=== PATIENT | male | born 1980 | race Caucasian/White ===

== ENCOUNTER 2016-12-06 06:44 | Day surgery (SDC) | payer BC ==
[~2016-12-06 06:44] MED LIST: ACETAMINOPHEN 500 MG TABLET PO PRN; MAG HYDROX/ALUMINUM HYD/SIMETH 30 ML UDC PO PRN; MAGNESIUM HYDROXIDE 30 ML UDC PO PRN; ONDANSETRON HCL/PF 2 MG/ML VIAL IV PRN; PROMETHAZINE HCL 25 MG in DEXTROSE 5 % IN WATER 50 ML IV PRN; RINGER'S SOLUTION,LACTATED 1,000 ML IV PRN; ZOLPIDEM TARTRATE 5 MG TABLET PO PRN; ceFAZolin SODIUM 1 GM VIAL IV PRN; diphenhydrAMINE HCL 50 MG/ML VIAL IV PRN
[2016-12-06] MEDS ORDERED: RINGER'S SOLUTION,LACTATED 1,000 ML IV ONE ×2 (07:19→09:30)
--- NOTE | 2016-12-06 11:09 | OR ---
Operative Report - Dictated Report Narrative: Date: 12/06/2016 Physician: Chava Griffin M.D. Cardiovascular Invasive Specialist: Jin Negron PA-C Preoperative diagnosis: Left Shoulder SLAP tear, posterior labral tear, acromioclavicular arthritis, subacromial impingement Postoperative diagnosis: Left Shoulder SLAP tear, posterior labral tear, acromioclavicular arthritis, subacromial impingement Procedure: Left shoulder arthroscopy with biceps tenodesis, posterior labral repair, open distal clavicle resection Anesthesia: General plus regional Complications: None Estimated blood loss: 50 mL Specimens: None Retained implants: [employer] 1.8 mm Q fix anchors 3, [employer] 5.5 mm Healicoil anchor 1 Drains: None Indications: Leighton Is a 36 year-old male who has been followed in my clinic with complaints of shoulder pain consistent with superior and posterior labral tear, subacromial impingement, and acromioclavicular arthritis. Physical exam and diagnostic imaging were consistent with his complaints and concern for the above. Conservative measures have failed including, but not limited to, passage of time, activity modification, medications, physical therapy/home exercise program, or injections. The risks, benefits, and alternatives were discussed in clinic. The risks being , bleeding, infection, blood clots, nerve, tendon, ligament, blood vessel injury, persistent pain, arthrosis, stiffness, need for prolonged therapy, need for additional procedures, and persistent symptoms. Consent was obtained in the clinic. Procedure: After marking the correct extremity in the preoperative holding area, a timeout was performed in the operating room. IV antibiotics consisting of 2 g of Ancef were administered prior to the procedure. A general followed by regional anesthetic was induced by the nurse violin restorer. This was in the supine position, then the patient was transitioned to a beachchair position with all bony prominences well-padded, head in neutral, the nonoperative arm well supported, and the legs padded with SCDs in place. The operative shoulder was then prepped and draped in a standard sterile fashion. Preoperatively the shoulder had full passive range of motion. After marking out the bony landmarks , saline was infused into the joint through a posterior lateral portal site. A hardy incision was made, and the blunt trocar and cannula was introduced into the shoulder joint. An anterior working portal was placed in the rotator cuff interval using a spinal needle for guidance. Upon initial evaluation, the biceps tendon showed a small amount of tenosynovitis but no tearing. The middle glenohumeral ligament was intact. Subscapularis tendon was intact. The glenoid showed mild grade 1 chondral changes. The humeral head articular surface showed no significant chondral changes. The anterior labrum was intact. The superior labrum demonstrated a type II tear extending into the posterior labrum. The pouch was of normal caliber with no loose bodies. The posterior labrum was or torn from the junction with the superior labrum all the way down to the 5 o'clock position. The supraspinatus tendon was intact with no tearing. The infraspinatus tendon was intact. Based on the arthroscopic findings, as well as exam and radiographic findings, it was elected to proceed with arthroscopic biceps tenodesis and posterior labral repair. We first turned our attention to the biceps tendon. A 5.5 mm suture anchor was placed at the superior aspect of the bicipital groove just superior to the upper border of the subscapularis insertion. One suture limb was passed twice around the tendon and then passed through it using an Accu Pass suture passing device. This was then tied down and the biceps tendon was tenotomized at the bicipital anchor. A 4.0 mm shaver was then used to debride the bicipital anchor as well as the free biceps tendon stump. Using the probe we confirmed that we had good anchoring of the biceps tendon. At this point a switching stick was placed in the posterior portal and a cannula was introduced. We turned our attention to preparing the posterior labrum using a series of labral elevators, a shaver, and a rasp. Once this was prepared with placed 1.8 mm Q fix anchors at approximately the 1:00, 2:30, and 4:00 positions to bring the labrum back up onto the glenoid. At this point we were happy with our posterior labral repair and felt there was no other intra-articular pathology to address. Attention was then turned to the subacromial space. Subacromial bursectomy was performed utilizing the prior portals. The coracoacromial ligament was intact. The bursal side of the rotator cuff demonstrated and no tears and no obvious wear. The acromial arch demonstrated normal morphology was no anterior hooking and no underside wear. The inferior aspect of the acromioclavicular joint capsule was inspected and he was noted to have significant inferior osteophyte off the distal clavicle causing impingement onto the supraspinatous muscle belly. Given these findings as well as his physical exam and MRI findings we elected to proceed with a open distal clavicle resection. All arthroscopic instruments and cannulas were removed from the joint. Attention was then turned to the distal clavicle. A longitudinal incision was made over the acromioclavicular joint. This was sharply dissected down to the chromic clavicular capsule. Cautery was utilized for hemostasis. A longitudinal capsulotomy was made and elevated off the anterior posterior aspects of the distal clavicle. There was notable hypertrophic bone and loss of joint space between the acromion and clavicle. Protecting the surrounding soft tissues, an oscillating saw was utilized in order to resect approximately 7 -10 mm of bone from the distal clavicle. The remaining clavicle was stable after removing this. A rasp was then used to smooth the underside of the cut portion of the distal clavicle as well as the underside of the acromion. The shoulder was placed through a range of motion and showed no remaining impingement between the acromion and the clavicle. Wounds were then thoroughly irrigated. The capsule was closed with interrupted 0 Vicryl to subcutaneous tissue with 3-0 Vicryl. Skin and portal incisions were closed with 4-0 nylon. Dressings consisting of Xeroform, 4 x 4, ABD, and tape were applied. All sponge, needle, blade, and instrument counts were correct prior to closing the wounds. The patient was awoken and transferred to the postanesthesia care unit in stable condition.
--- NOTE | 2016-12-06 11:09 | OR ---
Anesthesia Procedure Note - Anesthesia Procedure Note Date of Service: 12/06/16 Narrative: Vital Signs - Last Taken Temp 36.1 C L 12/06/16 10:50 Pulse 84 12/06/16 10:50 Resp 16 12/06/16 10:50 BP 154/89 12/06/16 07:15 Pulse Ox 97 12/06/16 10:50 O2 Oxygen Delivery Method Room Air 12/06/16 11:04 ANESTHESIA PROCEDURE NOTE Date of Procedure: 12/06/2016. Time of procedure: 744. Performed by: Christiano Shen CRNA Pipeline Gang Supervisor: None. Preprocedure diagnosis: Left shoulder pain, labral tear, shoulder tendinitis. Post procedure diagnosis: Same. Procedure: Left ultrasound guided interacalene nerve block for postoperative analgesia. Indications: The patient is a 36 -year-old male, requesting left ultrasound guided interscalene nerve block for postoperative analgesia related to left shoulder arthroscopy and labral repair. Findings: See below. Details of the procedure: The tissue over the intended target site was cleansed with ChloraPrep. 1 ml Lidocaine 1 % was infiltrated to the skin and subcutaneous tissue. Under sterile technique and ultrasound guidance a 22-gauge block needle was inserted to the left brachial plexus nerve bundle between the anterior scalene and the middle scalene muscles. 40 mL's of 0.5% bupivacaine plus epinephrine 1 200,000 was injected after negative aspiration for blood. Spread of local anesthetic around the brachial plexus was observed throughout the injection with ultrasound visualization. The needle was removed intact. No complications were noted. The images were retained in the hospital medical database . EBL: Minimal. Fluids: N/A. Specimen: N/A. Post procedure condition: The patient tolerated the procedure well. No complications were noted. Thank you for this consultation. Christiano Shen CRNA
[2016-12-06] MEDS ORDERED: oxyCODONE HCL/ACETAMINOPHEN 1 TAB TABLET PO PRN (12:23)
[2016-12-06] MEDS ORDERED: HYDROmorphone HCL 2 MG/ML VIAL IV PRN (12:24)
[2016-12-06 13:01] VITALS: BP 139/78
[2016-12-06] MEDS ORDERED: SENNOSIDES/DOCUSATE SODIUM 1 TAB TABLET PO SCH (21:00)
== END 2016-12-06 06:45 | disposition home or self-care (01) ==
LOC: AMB 06:44
PROVIDERS: ATTEND Orthopaedic Surgery
PROC: 0MM24ZZ Reattachment of Left Shoulder Bursa and Ligament, Percutaneous Endoscopic Approach (ICD-10-PCS; 2016-12-06)
PROC: 0PBB0ZZ Excision of Left Clavicle, Open Approach (ICD-10-PCS; 2016-12-06)
PROC: 3E0T3BZ Introduction of Anesthetic Agent into Peripheral Nerves and Plexi, Percutaneous Approach (ICD-10-PCS; 2016-12-06)
PROC: 0LS24ZZ Reposition Left Shoulder Tendon, Percutaneous Endoscopic Approach (ICD-10-PCS; principal; 2016-12-06 08:00)
DX: S43.432D Superior glenoid labrum lesion of left shoulder, subsequent encounter (principal); S43.492D Other sprain of left shoulder joint, subsequent encounter; M75.22 Bicipital tendinitis, left shoulder; M13.812 Other specified arthritis, left shoulder; M75.42 Impingement syndrome of left shoulder; Z68.27 Body mass index [BMI] 27.0-27.9, adult

== ENCOUNTER 2019-01-26 08:55 | Inpatient (IN) ==
[2019-01-26 09:58] LABS: Urine Bilirubin Negative (NEGATIVE); Urine Blood Negative /ul (NEGATIVE); Urine Ketone 50 mg/dL (NEGATIVE); Urine Nitrite Negative (NEGATIVE); Urine Protein 15 mg/dL (NEGATIVE); Urine Urobilinogen Normal (NORMAL)
[2019-01-26 10:04] LABS: Hematocrit 49.8 % (42.0-52.0); Hemoglobin 17.5 gm/dL (13.5-18.0); Mean Cell Volume 90.2 fl (78-100); Mean Corpuscular Hemoglobin 31.7 pg (27-31); Mean Corpuscular Hgb Conc 35.1 g/dl (32-36); Mean Platelet Volume 9.8 fl (8-11.3); Neutrophil # 10.8 K/mm3 (1.3-6.0); Neutrophil % 89.8 % (42-75.0); Platelet Count 260 K/mm3 (150-450); Red Blood Count 5.52 M/mm3 (4.7-6.0); Red Cell Distribution Width 12.6 % (11.5-14.0); White Blood Count 12.1 K/mm3 (4.0-10.5)
[2019-01-26 10:08] LABS: Urine Appearance Clear (CLEAR); Urine Bacteria None Seen; Urine Color Yellow; Urine RBC None Seen /hpf (0-5); Urine WBC None Seen /hpf (0-5); Urine pH >=9 pH (5.0-7.0)
[2019-01-26 10:12] LABS: Albumin * 4.9 gm/dl (3.4-5.0); Anion Gap 13.7 mmol/L (6.8-13.8); BUN/Creatinine Ratio 14.1 (9.0-21.6); Bilirubin, Total 1.2 mg/dL (0.0-1.1); Ca. Corrected For Albumin 8.7 mg/dL (8.4-10.2); Calcium * 9.7 mg/dL (7.9-10.9); Potassium 3.7 mmol/L (3.4-4.6)
--- NOTE | 2019-01-26 10:45 | ERNOTE ---
Abdominal HPI - Narrative Date of Service: 01/26/19 - General Chief Complaint: Abdominal Pain Time Seen by Provider: 01/26/19 10:45 Source: patient Exam Limitations: no limitations - Immun/Allergies/Home Medications Allergies/Adverse Reactions: Allergies No Known Allergies Allergy (Verified 01/26/19 15:53) Home Medications: HOME MEDICATIONS Ibuprofen [Motrin] 200 - 800 mg PO BID PRN 11/27/16 [Last Taken Unknown] - Pain Score Pain Score #1 Pain Score: 8 Abdominal Pain Onset Location: RLQ Pain Radiation: other - lower abdomen, periumbilical - History of Present Illness Narrative: The patient is a 38 year old male who presents for abdominal pain which has been present since last evening. There are associated symptoms of nausea and vomiting. The patient reports pain to RLQ, 810. There are no alleviating factors. There are aggravating factors of movement. Previous treatments have included: none. The past medical history includes: labral repair. The social history is negative. The patient has had no ill contacts. Patient reports last bowel movement yesterday around 1400 with increased amount of flatulence. Patient states that pain became increasingly severe yesterday 2300 with persistent nausea throughout the day. Patient states he awoke last evening with vomiting which recurred again this am at 0700 consisting of water which he has previously consumed. Review of Systems - Review of Systems Constitutional: Present: fatigue. Absent: fever, chills EYE: Present: no symptoms reported ENT: Present: no symptoms reported. Absent: ear pain, nasal drainage, sore throat Respiratory: Present: no symptoms reported. Absent: shortness of breath, cough Cardiology: Present: no symptoms reported. Absent: chest pain Gastrointestinal/Abdominal: Present: nausea, vomiting, abdominal pain, eating less, drinking less. Absent: diarrhea Genitourinary: Present: no symptoms reported. Absent: dysuria, decreased urinary output Musculoskeletal: Present: no symptoms reported Skin: Present: no symptoms reported. Absent: rash Neurological: Present: no symptoms reported All Other Systems: All systems neg except as marked Medical History (Last Reviewed 01/26/19 @ 10:57 by ESTEFANIA Leigh) Arthritis of left acromioclavicular joint Onset Date: Unknown Labral tear of shoulder Onset Date: ~10/2016 left Surgical History: Surgical History (Last Reviewed 01/26/19 @ 10:57 by ESTEFANIA Leigh) History of arthroscopic surgery of shoulder Onset Date: ~10/2016 left tibia surgery Onset Date: Unknown Family History: Family History (Last Reviewed 01/26/19 @ 10:57 by ESTEFANIA Leigh) Father Hypertension Diabetes Grandfather CVA (cerebral vascular accident) Social History: (Last Reviewed 01/26/19 @ 10:57 by ESTEFANIA Leigh) Social History: adopted: No foster care: No snf: No Marital status: Single lives independently: No household members: children caregiver/support person: No current occupational status: employed 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 [employer] Highest education level completed: Bachelor's degree Service: No Tobacco: Smoking Status: Never smoker Alcohol: alcohol intake: current Substance Use: substance use type: does not use Dietary Habits: caffeine: Yes Physical Exam - Physical Exam General Appearance: Present: wd/wn, alert, moderate distress Head Exam: Present: normal inspection Eye Exam: Normal inspection: bilateral Neck: Present: normal inspection Respiratory: Present: no respiratory distress, normal breath sounds, no accessory muscle use, lungs clear Cardiovascular/Chest: Present: regular rate, rhythm, no murmur Gastrointestinal/Abdominal: Present: normal bowel sounds, nondistended, soft, no organomegaly, tenderness - RLQ, suprapubic, periumbilical, guarding - RLQ and suprapubic, rebound - RLQ, Psoas sign. Absent: mass, hernia Neurological Exam: Present: alert, oriented, normal mood/affect, no motor/sensory deficits Skin Exam: Present: normal color, warm/dry Progress - Date and Time Seen: Date and Time: 01/26/19 11:00 Discussed results of testing available. Will proceed with CT abd/pelvis to further evaluate bowel as well as rule out appendicitis due to exam findings of RLQ pain. Patient verbalized understanding of testing. Will administer medication to aid with pain and nausea. 01/26/19 14:41 Results discussed with . ALEX to proceed with NG placement. Will admit to for SBO. 01/26/19 15:55 was present to evaluate patient. NG placement cleared by and ok to use. Patient told that he did have hernia repair when he was younger which maybe cause for adhesion. - Results and Orders Patient's Lab Results:: I have reviewed the patient's lab results. - Vital Signs Patient's Vital Signs:: I have reviewed the patient's vital signs. Vital Signs: Vital Signs 01/26/19 09:35 Temperature 36.7 C Pulse Rate 78 Respiratory Rate 17 Blood Pressure 158/84 H O2 Sat by Pulse Oximetry 100 - EKG EKG #1 EKG: NSR EKG read: Reviewed by me EKG Comments: EKG was completed accidentally without order in system. Due to no previous for comparison will check trop due to completion. No ST elevation noted. - X-Ray X-Ray #1 X-Ray: abdomen Interpretation: Reviewed by me X-ray Comments: IMPRESSION: 1. Abnormal bowel gas pattern, with dilated small bowel loops in the left upper quadrant with air-fluid levels. There is bowel gas and stool within the large bowel segments. Overall suggestive of potential early versus partial small bowel obstruction versus small bowel ileus due to underlying enteritis. 2. Additional comments are as above. Electronically signed by Shante Cornelius M.D.. - CT/Ultrasound CT/Ultrasound Narrative: IMPRESSION: 1. CT findings suspicious for small bowel obstruction, with transition point identified in the right lower quadrant likely at the mid to distal segment of the small bowel. No definite findings suggestive definite etiology. Clinical correlation is advised. 2. Normal caliber, noninflammatory appendix identified. 3. Additional comments are as above. Electronically signed by Shante Cornelius M.D.. - Progress/Reassessment Chief Complaint: Abdominal Pain Departure Clinical Impression: Small bowel obstruction - Departure Disposition: Still a patient Condition: Good
[2019-01-26] MEDS ORDERED: DIATRIZOATE MEGLUMINE, SODIUM 30 ML BTL ONE (10:55)
[2019-01-26] MEDS ORDERED: ONDANSETRON HCL/PF 2 MG/ML VIAL IV ONE (10:55)
[2019-01-26] MEDS ORDERED: MORPHINE SULFATE 2 MG/ML DISP.SYRIN IV ONE ×2 (10:55→13:12)
[2019-01-26] MEDS ORDERED: DIATRIZOATE MEGLUMINE, SODIUM 30 ML BTL PO ONE (10:55)
[2019-01-26] MEDS ORDERED: NORMAL SALINE 1,000 ML IV PRN (15:22)
[2019-01-26] MEDS ORDERED: ONDANSETRON HCL/PF 2 MG/ML VIAL IV PRN (15:23)
[2019-01-26] MEDS ORDERED: MORPHINE SULFATE 2 MG/ML DISP.SYRIN IV PRN (15:23)
[2019-01-26] MEDS ORDERED: FLU VACC QS2019-20(6MOS UP)/PF 60 MCG/0.5 ML SYRINGE IM ONE (17:00)
[2019-01-26] MEDS ORDERED: BUPIVACAINE HCL/EPINEPHRINE 50 ML VIAL ONE (17:28)
[2019-01-26] MEDS ORDERED: MUPIROCIN 22 APPL TUBE TP ONE ×2 (17:28→20:08)
[2019-01-26] MEDS ORDERED: BACITRACIN 50,000 UNITS VIAL ONE (17:28)
[2019-01-26] MEDS ORDERED: ceFAZolin SODIUM/DEXTROSE,ISO 2 GM/50 ML BAG IV ONE (17:31)
--- NOTE | 2019-01-26 17:44 | HP ---
Chief Complaint - Chief Complaint Date of Service: 01/26/19 Time of Service: 17:32 Chief Complaint: Small bowel obstruction History of Present Illness: At about 11 PM last night he had the sudden onset of pain in the lower abdomen and nausea and vomiting. This continued and became more severe. He presented to the emergency room where after evaluation a CT scan was performed revealing a small bowel obstruction with a transition zone in the right lower quadrant. He has never had a problem like this before. His only previous surgery was for repair of a right inguinal hernia at age 6. Generally moves his bowels daily. Yesterday he had loose bowel movements in the afternoon followed by a lot of gas but has not moved his bowels since. Currently he has constant discomfort in the right lower quadrant with episodic stabbing exacerbations. Some relief with morphine but the pain never goes away. Medical History (Last Reviewed 01/26/19 @ 17:34 by Mary Anne Toledo MD) Arthritis of left acromioclavicular joint Onset Date: Unknown Labral tear of shoulder Onset Date: ~10/2016 left Surgical History: Surgical History (Last Reviewed 01/26/19 @ 17:34 by Mary Anne Toledo MD) History of arthroscopic surgery of shoulder Onset Date: ~10/2016 left tibia surgery Onset Date: Unknown Family History: Family History (Last Reviewed 01/26/19 @ 17:34 by Mary Anne Toledo MD) Father Diabetes Hypertension Grandfather CVA (cerebral vascular accident) Social History: (Last Reviewed 01/26/19 @ 17:34 by Mary Anne Toledo MD) Social History: adopted: No foster care: No penitentiary: No Marital status: Single lives independently: No household members: children caregiver/support person: No current occupational status: employed 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 Highest education level completed: Bachelor's degree Service: No Tobacco: Smoking Status: Never smoker Alcohol: alcohol intake: current Substance Use: substance use type: does not use Dietary Habits: caffeine: Yes Review Of Systems (GEN) - Review of Systems Generalized/Overall Review: Absent: Chills, Fever EENTM: Present: No Symptoms Reported, Other - Pain from the nasogastric tube Respiratory: Absent: Cough, Shortness of Breath Cardiac: Absent: Chest Pain, Palpitations Abdominal: Present: Nausea, Vomiting, Abdominal Pain Genitourinary: Present: No Symptoms Reported Musculoskeletal: Present: No Symptoms Reported, Other - He has some residual discomfort in his left shoulder if he uses it a lot Neurological: Present: No Symptoms Reported Skin: Present: No Symptoms Reported Allergies/Adverse Reactions: Allergies Allergy/AdvReac Type Severity Reaction Status Date / Time No Known Allergies Allergy Verified 01/26/19 15:53 Home Medications: HOME MEDICATIONS Ibuprofen [Motrin] 200 - 800 mg PO BID PRN 11/27/16 [Last Taken Unknown] Exam - Exam Vital Signs: Vital Signs - Last Taken Temp 36.7 C 01/26/19 09:35 Pulse 66 01/26/19 16:08 Resp 14 01/26/19 16:08 BP 138/81 01/26/19 15:23 Pulse Ox 100 01/26/19 16:08 Constitutional: Present: Alert, Oriented x3, Cooperative, Well developed, Well nourished, Moderate distress ENT Exam: Present: normal ENT inspection, other - Nasogastric tube Eye Exam: bilateral eye: normal inspection Neck: Present: full range of motion, normal inspection Respiratory: Present: normal breath sounds Cardiovascular/Chest: Present: regular rate, rhythm, no murmur Abdomen: Present: other - His abdomen is soft. There is no percussion tenderness. There is no guarding. He does have significant direct tenderness in the right lower quadrant, no bowel sounds /Rectal: Present: External genitalia normal, Other - There is a healed right inguinal hernia incision Extremity: Present: normal range of motion, normal inspection, no calf tenderness Skin Exam: Present: warm/dry, other - Slightly plethoric Neurologic: Present: rn military II-XII nml as tested, normal cerebellar test, no motor/sensory deficits Appearance: Present: appropriate appearance, appropriate insight, neat, no memory impairment Eye contact: Present: cooperative, good eye contact, normal speech Thoughts: Present: normal thought pattern Diagnostic Studies: Abnormal Lab Results 01/26/19 01/26/19 01/26/19 Range/Units 09:30 09:45 09:45 WBC 12.1 H (4.0-10.5) K/mm3 MCH 31.7 H (27-31) pg Immature Gran # (Auto) 0.04 H (0.000-0.0310) K/mm3 Neutrophils % 89.8 H (42-75.0) % Lymphocytes % 6.1 L (20-51) % Neutrophils # 10.8 H (1.3-6.0) K/mm3 Lymphocytes # 0.74 L (1.5-3.5) k/mm3 Random Glucose 122 H (70-110) mg/dL Total Bilirubin 1.2 H (0.0-1.1) mg/dL Urine Protein 15 H (NEGATIVE) mg/dL Laboratory Results WBC 12.1 K/mm3 (4.0-10.5) H 01/26/19 09:45 RBC 5.52 M/mm3 (4.7-6.0) 01/26/19 09:45 Hgb 17.5 gm/dL (13.5-18.0) 01/26/19 09:45 Hct 49.8 % (42.0-52.0) 01/26/19 09:45 MCV 90.2 fl (78-100) 01/26/19 09:45 MCH 31.7 pg (27-31) H 01/26/19 09:45 MCHC 35.1 g/dl (32-36) 01/26/19 09:45 RDW 12.6 % (11.5-14.0) 01/26/19 09:45 Plt Count 260 K/mm3 (150-450) 01/26/19 09:45 MPV 9.8 fl (8-11.3) 01/26/19 09:45 Immature Gran % (Auto) 0.30 % (0.001-0.429) 01/26/19 09:45 Immature Gran # (Auto) 0.04 K/mm3 (0.000-0.0310) H 01/26/19 09:45 Neutrophils % 89.8 % (42-75.0) H 01/26/19 09:45 Lymphocytes % 6.1 % (20-51) L 01/26/19 09:45 Monocytes % 3.6 % (0.0-9) 01/26/19 09:45 Eosinophils % 0.0 % (0.0-3.0) 01/26/19 09:45 Basophils % 0.2 % (0.0-1.0) 01/26/19 09:45 Nucleated RBC % 0.0 k/mm3 (0-1) 01/26/19 09:45 Neutrophils # 10.8 K/mm3 (1.3-6.0) H 01/26/19 09:45 Lymphocytes # 0.74 k/mm3 (1.5-3.5) L 01/26/19 09:45 Monocytes # 0.4 k/mm3 (0.0-1.0) 01/26/19 09:45 Eosinophils # 0.0 k/mm3 (0.0-0.7) 01/26/19 09:45 Absolute Basophils 0.0 k/mm3 (0.0-0.1) 01/26/19 09:45 Sodium 139 mmol/L (132-142) 01/26/19 09:45 Plasma Sodium 139 mmol/L (130-142) 01/26/19 09:45 Potassium 3.7 mmol/L (3.4-4.6) 01/26/19 09:45 Chloride 100 mmol/L (97-106) 01/26/19 09:45 Carbon Dioxide 29.0 mmol/L (24-32.6) 01/26/19 09:45 Anion Gap 13.7 mmol/L (6.8-13.8) 01/26/19 09:45 BUN 13 mg/dL (6-23) 01/26/19 09:45 Creatinine 0.92 mg/dL (0.4-1.4) 01/26/19 09:45 Est GFR (Non-Af Amer) 98 mL/min (60-130) 01/26/19 09:45 BUN/Creatinine Ratio 14.1 (9.0-21.6) 01/26/19 09:45 Random Glucose 122 mg/dL (70-110) H 01/26/19 09:45 Calcium 9.7 mg/dL (7.9-10.9) 01/26/19 09:45 Calcium Adj for Albumin 8.7 mg/dL (8.4-10.2) 01/26/19 09:45 Total Bilirubin 1.2 mg/dL (0.0-1.1) H 01/26/19 09:45 AST 24 U/L (0-48) 01/26/19 09:45 ALT 33 U/L (19-67) 01/26/19 09:45 Alkaline Phosphatase 76 U/L (50-170) 01/26/19 09:45 Troponin I Less than 0.017 ng/mL (0.00-0.10) 01/26/19 12:34 C-Reactive Prot, Quant Less than 0.2 mg/dL (0.0-0.9) 01/26/19 09:45 Total Protein 8.0 gm/dL (6.2-8.2) 01/26/19 09:45 Albumin 4.9 gm/dl (3.4-5.0) 01/26/19 09:45 Amylase 73 U/L (25-115) 01/26/19 09:45 Lipase 179 U/L (73-393) 01/26/19 09:45 Urine Color Yellow 01/26/19 09:30 Urine Appearance Clear (CLEAR) 01/26/19 09:30 Urine pH >=9 pH (5.0-7.0) 01/26/19 09:30 Ur Specific [place] 1.010 SP.GR. (1.005-1.030) 01/26/19 09:30 Urine Protein 15 mg/dL (NEGATIVE) H 01/26/19 09:30 Urine Glucose (UA) Negative mg/dL (NEGATIVE) 01/26/19 09:30 Urine Ketones 50 mg/dL (NEGATIVE) 01/26/19 09:30 Urine Blood Negative /ul (NEGATIVE) 01/26/19 09:30 Urine Nitrate Negative (NEGATIVE) 01/26/19 09:30 Urine Bilirubin Negative mg/dl (NEGATIVE) 01/26/19 09:30 Prot Sulfosalicylic Acd Negative mg/dL (0) 01/26/19 09:30 Urine Urobilinogen Normal EU/dl (NORMAL) 01/26/19 09:30 Ur Leukocyte Esterase Negative /ul (NEGATIVE) 01/26/19 09:30 Urine RBC None seen /hpf (0-5) 01/26/19 09:30 Urine WBC None seen /hpf (0-5) 01/26/19 09:30 Ur Epithelial Cells None seen /hpf (0-5) 01/26/19 09:30 Urine Bacteria None seen (NONE) 01/26/19 09:30 Urine Culture Comments No culture indicated 01/26/19 09:30 Initial abdominal x-rays show dilated small bowel. CT scan demonstrates dilated proximal small bowel with a transition zone in the right lower quadrant. Subsequent blood and upright abdomen shows no progress of contrast compatible with continued obstruction. Assessment/Plan - Assessment/Plan (1) Small bowel obstruction Assessment: He has a complete small bowel obstruction which has persisted, with significant discomfort and tenderness. The small intestine does not appear abnormal on the CT scan to suggest inflammatory bowel disease, his only previous abdominal surgery was for hernia repair--- there could be residual adhesions from the bowel that was in that. Explained this to the patient. Explained what was involved with exploratory laparotomy for release of the obstruction. The alternative of trial of NG suction was discussed, however this is persisted since last night and he does have significant tenderness on exam. The risks and possible complications of the surgery were outlined. The expected postop course was explained. After interactive discussion his questions were answered to his apparent satisfaction and he has given informed consent for exploratory laparotomy for release of the obstruction. SCDs, chlorhexidine wipes, IV Ancef. Problem: Acute
--- NOTE | 2019-01-26 17:47 | ANES ---
Anesthesia Pre Procedure Eval Vitals/Labs: Last Vital Signs Temp 36.7 C 01/26/19 09:35 Pulse 66 01/26/19 16:08 Resp 14 01/26/19 16:08 BP 138/81 01/26/19 15:23 Pulse Ox 100 01/26/19 16:08 HOME MEDICATIONS Ibuprofen [Motrin] 200 - 800 mg PO BID PRN 11/27/16 [Last Taken Unknown] Allergies/Adverse Reactions: Allergies Allergy/AdvReac Type Severity Reaction Status Date / Time No Known Allergies Allergy Verified 01/26/19 15:53 - Planned Procedure Planned Procedure: Small Bowel Obstruction Medication List Reviewed:: Yes Allergies Verified: Yes Medical History (Last Reviewed 01/26/19 @ 17:45 by Octavio Jensen CRNA) Arthritis of left acromioclavicular joint Onset Date: Unknown Labral tear of shoulder Onset Date: ~10/2016 left Surgical History (Last Reviewed 01/26/19 @ 17:45 by Octavio Jensen CRNA) History of arthroscopic surgery of shoulder Onset Date: ~10/2016 left tibia surgery Onset Date: Unknown Family History (Last Reviewed 01/26/19 @ 17:45 by Octavio Jensen CRNA) Father Diabetes Hypertension Grandfather CVA (cerebral vascular accident) - Family Anesthesia History Family History:: no untoward family reactions to anesthesia, no familial bleeding tendencies, no family history of clotting disorders, no family history of premature - Airway/Neck/Teeth Teeth Condition: intact Neck Exam: limited range of motion - limited by NG discomfort Mallampatti Score: 2 - estimate, inadequate ability to assess Thyromental (T-M) distance: > 6 cm Mandibulo Hyoid distance: > 3 cm - Respiratory Respiratory Physical: lungs clear Smoking Status: Never smoker Sleep Apnea currently treated: No Sleep Apnea by current assessment: No - Cardiovascular Tolerate Activity: Good Heart Sounds: S1 & S2, Regular - Anesthesia Assessment and Plan ASA Class: PS, I, E Anesthesia Type Plan: General ET, Epidural - Thoracic for post op pain relief
[2019-01-26] MEDS ORDERED: SUCCINYLCHOLINE IN 0.9%NACL/PF 200 MG/10 ML SYRINGE IV ONE (18:02)
[2019-01-26] MEDS ORDERED: NEOSTIGMINE METHYLSULFATE 1 MG/ML VIAL ONE (18:02)
[2019-01-26] MEDS ORDERED: MIDAZOLAM HCL/PF 5 MG/ML VIAL ONE (18:02)
[2019-01-26] MEDS ORDERED: ONDANSETRON HCL/PF 2 MG/ML VIAL ONE (18:02)
[2019-01-26] MEDS ORDERED: fentaNYL CITRATE/PF 50 MCG/ML AMPUL ONE (18:02)
[2019-01-26] MEDS ORDERED: PROPOFOL VIAL IV ONE (18:03)
[2019-01-26] MEDS ORDERED: BUPIVACAINE HCL/PF 30 ML VIAL ONE (18:03)
[2019-01-26] MEDS ORDERED: GLYCOPYRROLATE 0.2 MG/ML VIAL ONE (18:03)
[2019-01-26] MEDS ORDERED: ROCURONIUM BROMIDE 10 MG/ML VIAL ONE (18:03)
[2019-01-26] MEDS ORDERED: ISOPROPYL ALCOHOL 480 APPL BTL MC ONE (18:49)
[2019-01-26] MEDS: RINGER'S SOLUTION,LACTATED 1,000 ML IV PRN ×2 (19:00→20:44)
[2019-01-26] MEDS: ROPIVACAINE HCL/PF 250 MG, fentaNYL CITRATE/PF 250 MCG in NORMAL SALINE 220 ML EP SCH (19:27)
--- NOTE | 2019-01-26 19:57 | ANES ---
Post Anesthesia Discharge - Transfer of Care Transfer of Care handoff given to nurse: Yes - Discharge from PACU Discharge from PACU when meets criteria: Yes - Awake and comfortable.
[2019-01-26] MEDS ORDERED: BUPIVACAINE HCL/EPINEPHRINE 50 ML VIAL IJ ONE (20:09)
--- NOTE | 2019-01-26 20:11 | ANES ---
Post Anesthesia Assessment - Vital Signs Vitals: Last Vital Signs Temp 37.0 C 01/26/19 19:50 Pulse 89 01/26/19 20:01 Resp 20 01/26/19 20:01 BP 109/49 01/26/19 20:01 Pulse Ox 97 01/26/19 20:01 Airway Patency: Normal - Mental Status Level Of Consciousness: Awake, Alert, Appropriate - Pain Level Pain Score: 0 - N/V Assessment Nausea/Vomiting Presence: None Dehydration:: No
--- NOTE | 2019-01-26 20:26 | OR ---
Operative Report - Dictated Report Narrative: OPERATIVE REPORT DATE OF OPERATION: 01/26/2019 PREOPERATIVE DIAGNOSIS: Small bowel obstruction POSTOPERATIVE DIAGNOSIS: Small bowel obstruction from dense adhesive band OPERATION: Exploratory laparotomy with lysis of adhesions SURGEON: Mary Anne Toledo MD ANESTHESIA: General endotracheal/epidural Octavio Jensen CRNA INDICATIONS FOR PROCEDURE: The patient is a 38-year-old male who presented to the emergency room with a 12-hour history of sudden onset lower abdominal pain, nausea, and vomiting. CT scan reveals small bowel obstruction. FINDINGS: Dense adhesive band across the small bowel in the right lower quadrant with complete obstruction. Viable bowel. Obstruction relieved. No other obvious pathology NARRATIVE OF PROCEDURE: The patient was identified preoperatively and prior to the administration of anesthetic a multidisciplinary timeout was observed. With the patient in the supine position, SCDs and monitors were applied and 2 g of intravenous Ancef administered. The patient was given intravenous sedation and placed in the sitting position. An epidural catheter was placed. The patient was returned to the supine position for intubation and general endotracheal anesthetic was administered. A Rivera catheter was placed. The patient's abdomen was prepped with Betadine solution and the midline isolated with 4 sterile towels. The remainder the patient was covered with a sterile disposable drape. A 4 fingerbreadth low midline incision was made skirting to the right of the umbilicus. Dissection was carried through subcutaneous tissue with electrocautery until the fascia of the linea alba was identified. This was incised. The peritoneum was then elevated and incised to allow entry into the abdomen under direct vision. The greater omentum immediately visible appeared normal. This was retracted superiorly and dilated small bowel was encountered. This was traced distally and found to course into the right lower quadrant where posteriorly a dense adhesive band was identified. This could be lysed under direct vision which freed the small intestine which then could be delivered for inspection. The point of obstruction was readily identifiable. The distal bowel was infantile but filled immediately with small bowel content. The bowel was then traced distally to the ileocecal valve. No further pathology was identified. The proximal bowel contents were stripped distally and the bowel inspected. It appeared normal. The small bowel was then replaced anatomically. The colon and greater omentum were replaced anatomically. After receiving a correct sponge needle instrument count attention was turned to closing the abdomen. The peritoneum and fascia of the linea alba were approximated with a single layer with interrupted sutures of 0 Vicryl. Subcutaneous space was obliterated with interrupted sutures of 3-0 chromic. 0.5% Marcaine with epinephrine was used for local anesthetic infiltration. The skin was approximated with omar. The operative site was washed and dried. A dressing of folded 4 x 4's and Medipore tape was applied. The operative procedure was terminated at this point. The patient tolerated the anesthetic and procedure well without complication. There was no measurable blood loss. The Rivera catheter was removed at the end of the case with 200 mL of urine output recorded. The nasogastric tube was also removed. The patient was transferred to the recovery room awake, extubated, and in stable condition. Reviewed and electronically signed
[2019-01-26] MEDS: PANTOPRAZOLE SODIUM 40 MG in NORMAL SALINE 100 ML IV SCH (22:05)
[2019-01-27] MEDS: RINGER'S SOLUTION,LACTATED 1,000 ML IV PRN (07:00)
[2019-01-27] MEDS ORDERED: oxyCODONE HCL/ACETAMINOPHEN 1 TAB TABLET PO PRN (07:33)
--- NOTE | 2019-01-27 09:21 | PN ---
Subjective - Date and Time Seen Date: 01/27/19 Time: 09:16 Objective Objective Narrative: He is postop day 1 after exploratory laparotomy for release of small bowel obstruction due to dense adhesive band. His vital signs have been normal. His original pain is resolved, replaced by incisional discomfort which is controlled currently with ISOTOPE TECHNOLOGIST. He tolerated liquids. He has been up to the bathroom. He initially had some right shoulder pain when he got up the first time, however this has resolved. - Review of Systems Generalized/Overall Review: Denies: Chills, Fever EENTM: Reports: No Symptoms Reported Respiratory: Denies: Shortness of Breath Cardiac: Denies: Chest Pain, Palpitations Abdominal: Reports: Other - Incisional discomfort Genitourinary Symptoms: Reports: No Symptoms Reported Musculoskeletal Complaints: Reports: No Symptoms Reported Neurological: Reports: No Symptoms Reported Skin: Reports: No Symptoms Reported - Vitals Vitals: Last Vital Signs Temp 37.3 C 01/26/19 20:13 Pulse 68 01/27/19 04:18 Resp 14 01/27/19 04:18 BP 119/57 01/27/19 04:18 Pulse Ox 99 01/27/19 04:18 - Abnormal Lab Findings Abnormal Lab Findings: Abnormal Lab Results 01/26/19 01/26/19 01/26/19 Range/Units 09:30 09:45 09:45 WBC 12.1 H (4.0-10.5) K/mm3 MCH 31.7 H (27-31) pg Immature Gran # (Auto) 0.04 H (0.000-0.0310) K/mm3 Neutrophils % 89.8 H (42-75.0) % Lymphocytes % 6.1 L (20-51) % Neutrophils # 10.8 H (1.3-6.0) K/mm3 Lymphocytes # 0.74 L (1.5-3.5) k/mm3 Random Glucose 122 H (70-110) mg/dL Total Bilirubin 1.2 H (0.0-1.1) mg/dL Urine Protein 15 H (NEGATIVE) mg/dL - Exam Constitutional: Present: Alert, Oriented x3, Cooperative, Mild distress ENT Exam: Present: normal ENT inspection Neck: Present: full range of motion, normal inspection Respiratory: Present: no respiratory distress Cardiovascular/Chest: Present: regular rate, rhythm Abdomen: Present: other - Dressing dry and intact. Only discomfort is at the incision /Rectal: Present: Exam deferred Extremity: Present: normal range of motion, no calf tenderness Skin Exam: Present: normal color, warm/dry Neurologic: Present: embossograph operator II-XII nml as tested, no motor/sensory deficits Appearance: Present: appropriate appearance, appropriate insight, neat, no memory impairment Eye contact: Present: cooperative, good eye contact, normal speech Thoughts: Present: normal thought pattern Cauti Physician Documentation - Urinary Catheter Management Urethral (Rivera) Date of Insertion: 01/26/19 Time of Insertion: 18:30 Assessment/Plan - Problems/Diagnosis (1) Small bowel obstruction Problem: Acute Narrative: Will encourage ambulation. Will begin p.o. analgesic. We will advance diet for lunch. If tolerated possibly home later today
--- NOTE | 2019-01-27 09:36 | PN ---
Subjective - Date and Time Seen Date: 01/27/19 Time: 09:34 Subjective Narrative: Patient denies complications to thoracic epidural, and states pain is well controlled. Objective - Review of Systems Generalized/Overall Review: Reports: No Symptoms Reported Neurological: Reports: No Symptoms Reported - Vitals Vitals: Last Vital Signs Temp 37.3 C 01/26/19 20:13 Pulse 68 01/27/19 04:18 Resp 14 01/27/19 04:18 BP 119/57 01/27/19 04:18 Pulse Ox 99 01/27/19 04:18 - Abnormal Lab Findings Abnormal Lab Findings: Abnormal Lab Results 01/26/19 01/26/19 01/26/19 Range/Units 09:30 09:45 09:45 WBC 12.1 H (4.0-10.5) K/mm3 MCH 31.7 H (27-31) pg Immature Gran # (Auto) 0.04 H (0.000-0.0310) K/mm3 Neutrophils % 89.8 H (42-75.0) % Lymphocytes % 6.1 L (20-51) % Neutrophils # 10.8 H (1.3-6.0) K/mm3 Lymphocytes # 0.74 L (1.5-3.5) k/mm3 Random Glucose 122 H (70-110) mg/dL Total Bilirubin 1.2 H (0.0-1.1) mg/dL Urine Protein 15 H (NEGATIVE) mg/dL - Exam Constitutional: Present: Alert, Oriented x3 Extremity: Present: normal range of motion Cauti Physician Documentation - Urinary Catheter Management Urethral (Rivera) Date of Insertion: 01/26/19 Time of Insertion: 18:30 Assessment/Plan Plan Narrative: Continue current thoracic epidural at present settings. If patient will be discharged today will have catheter removed prior to discharge.
[2019-01-27] MEDS ORDERED: HYDROmorphone HCL 1 MG/ML DISP.SYRIN IV PRN (16:57)
[2019-01-27] MEDS: oxyCODONE HCL/ACETAMINOPHEN 1 TAB TABLET PO PRN ×2 (17:20→23:44)
[2019-01-27] MEDS: ROPIVACAINE HCL/PF 250 MG, fentaNYL CITRATE/PF 250 MCG in NORMAL SALINE 220 ML EP SCH (19:16)
[2019-01-27] MEDS: PANTOPRAZOLE SODIUM 40 MG in NORMAL SALINE 100 ML IV SCH (20:13)
[2019-01-28] MEDS: oxyCODONE HCL/ACETAMINOPHEN 1 TAB TABLET PO PRN ×3 (07:07→19:40)
--- NOTE | 2019-01-28 19:06 | DS ---
(1) Small bowel obstruction Problem: Acute Date of Discharge:: 01/28/19 Description of Stay: He was taken to the operating room on 01/26/2019 and underwent an exploratory laparotomy for small bowel obstruction. He was found to have a dense adhesive band causing the obstruction. This was lysed. Postoperatively his vital signs remained stable. His presenting pain was were replaced by incisional discomfort which was controlled initially with an epidural and then p.o. pain medication. He was able to ambulate independently. He was able to tolerate a regular diet and was passing gas. His dressing remained dry. Procedures Performed: see notes below - Exploratory laparotomy with lysis of adhesions Results and Findings: Lab Pending Results 01/26/19 09:30: Urine Color Yellow, Urine Appearance Clear, Urine pH >=9, Ur Specific [place] 1.010, Urine Protein 15 H, Urine Glucose (UA) Negative, Urine Ketones 50, Urine Blood Negative, Urine Nitrate Negative, Urine Bilirubin Negative, Prot Sulfosalicylic Acd Negative, Urine Urobilinogen Normal, Ur Leukocyte Esterase Negative, Urine RBC None seen, Urine WBC None seen, Ur Epithelial Cells None seen, Urine Bacteria None seen, Urine Culture Comments No culture indicated 01/26/19 09:45: WBC 12.1 H, RBC 5.52, Hgb 17.5, Hct 49.8, MCV 90.2, MCH 31.7 H, MCHC 35.1, RDW 12.6, Plt Count 260, MPV 9.8, Immature Gran % (Auto) 0.30, Immature Gran # (Auto) 0.04 H, Neutrophils % 89.8 H, Lymphocytes % 6.1 L, Monocytes % 3.6, Eosinophils % 0.0, Basophils % 0.2, Nucleated RBC % 0.0, Neutrophils # 10.8 H, Lymphocytes # 0.74 L, Monocytes # 0.4, Eosinophils # 0.0, Absolute Basophils 0.0 01/26/19 09:45: Sodium 139, Plasma Sodium 139, Potassium 3.7, Chloride 100, Carbon Dioxide 29.0, Anion Gap 13.7, BUN 13, Creatinine 0.92, Est GFR (Non-Af Amer) 98, BUN/Creatinine Ratio 14.1, Random Glucose 122 H, Calcium 9.7, Calcium Adj for Albumin 8.7, Total Bilirubin 1.2 H, AST 24, ALT 33, Alkaline Phosphatase 76, Total Protein 8.0, Albumin 4.9, Amylase 73, Lipase 179 01/26/19 09:45: C-Reactive Prot, Quant Less than 0.2 01/26/19 12:34: Troponin I Less than 0.017 Discharge Location: Home Disposition: Home self-care Condition: Good Discharge Activity: Activity as tolerated, No Lifting, Other - Keep wound dry and change the dressing as needed Discharge Diet: General/regular food Problem Oriented Discharge Instructions to Patient/Family: Small Bowel Obstruction, [id number] Additional Patient Instructions (free text): Follow up appointment with Saturday at 1:45pm. Complete Home Medications List: Complete Home Medication List: RX: Ibuprofen [Motrin] 200 - 800 mg PO BID PRN 11/27/16 RX: oxyCODONE HCL/ACETAMINOPHEN [Percocet 5 MG/325 MG] 2 tab PO Q4H PRN #30 tab 01/28/19
[2019-01-28 19:29] VITALS: BP 137/84
[2019-01-28] MEDS ORDERED: oxyCODONE HCL/ACETAMINOPHEN 1 TAB TABLET PO PRN (20:00)
[2019-01-28] MEDS: PANTOPRAZOLE SODIUM 40 MG in NORMAL SALINE 100 ML IV SCH (21:42)
== END 2019-01-28 20:40 | disposition home or self-care (01) | DRG 337 ==
LOC: ER 08:55 → MS 14:52
PROVIDERS: ADMIT Surgery; ATTEND Surgery
DX: Z23 Encounter for immunization; K56.52 Intestinal adhesions [bands] with complete obstruction
CPT/HCPCS: 36415; 71010; 71045; 74019; 74020; 74177; 80053; 81001; 82150; 83690; 84484; 85025; 86140; 90686; 93005; 96374; 96376; 99285; J0330; J2405; Q9963; Q9967

== ENCOUNTER 2019-01-30 21:37 | Inpatient (IN) ==
--- NOTE | 2019-01-30 22:17 | ERNOTE ---
Abdominal HPI - Narrative Date of Service: 01/30/19 - General Chief Complaint: Abdominal Pain Time Seen by Provider: 01/30/19 22:14 Source: patient Exam Limitations: no limitations - Immun/Allergies/Home Medications Immunizatons: IMMUNIZATION HX Immunizations Up to Date Yes History of Influenza Vaccine Yes Hx Pneumococcal Vaccination No Allergies/Adverse Reactions: Allergies No Known Allergies Allergy (Verified 01/26/19 15:53) Home Medications: HOME MEDICATIONS Ibuprofen [Motrin] 200 - 800 mg PO BID PRN 11/27/16 [Last Taken Unknown] oxyCODONE HCL/ACETAMINOPHEN [Percocet 5 MG/325 MG] 2 tab PO Q4H PRN #30 tab 01/28/19 [Last Taken Unknown] - Pain Score Pain Score #1 Pain Score: 10 Abdominal Pain Onset Location: generalized abdomen Pain Radiation: no radiation - History of Present Illness Narrative: 38-year-old male 4 days ago had small bowel obstruction surgery was released 2 days ago was doing well until yesterday where he started noticing he was having less passing gas and less stool production he is taken to clocks 3 times last time at 2:00 today has not had other than a few pellets and no gas since he is in severe pain and nauseous Date (Duration): 01/30/19 Time (Timing): 14:00 Timing: constant, getting worse Quality: severe Activities at Onset: none Modifying Factors - (Improves): Present: analgesics Modifying Factors - (Worsens): Present: analgesics Associated Symptoms: Present: denies symptoms Prior Abdominal Problems: Present: none Prior Treatment: Present: recently seen Review of Systems - Review of Systems Constitutional: Present: no symptoms reported EYE: Present: no symptoms reported ENT: Present: no symptoms reported Respiratory: Present: no symptoms reported Cardiology: Present: no symptoms reported Gastrointestinal/Abdominal: Present: nausea, abdominal pain Genitourinary: Present: no symptoms reported Musculoskeletal: Present: no symptoms reported Skin: Present: no symptoms reported Neurological: Present: no symptoms reported All Other Systems: All systems neg except as marked Medical History (Last Reviewed 01/30/19 @ 22:16 by Grayson Mckeon MD) Arthritis of left acromioclavicular joint Onset Date: Unknown Labral tear of shoulder Onset Date: ~10/2016 left Surgical History: Surgical History (Last Reviewed 01/30/19 @ 22:16 by Grayson Mckeon MD) History of exploratory laparotomy Onset Date: 01/26/19 Balajian-w/lysis of adhesions History of arthroscopic surgery of shoulder Onset Date: 12/06/16 Dr Griffin-left w/biceps tenodesis, posterior labral repair, open distal clavicle resection. 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 Highest education level completed: Bachelor's degree Service: No Tobacco: Smoking Status: Never smoker Alcohol: alcohol intake: current Substance Use: substance use type: does not use Dietary Habits: caffeine: Yes Physical Exam - Physical Exam General Appearance: Present: wd/wn, alert, severe distress Head Exam: Present: normal inspection Eye Exam: Normal inspection: bilateral Ears, Nose, Throat: Present: normal ENT inspection Neck: Present: normal inspection Respiratory: Present: no respiratory distress Cardiovascular/Chest: Present: regular rate, rhythm Gastrointestinal/Abdominal: Present: tenderness, abnormal bowel sounds, distended, guarding. Absent: nontender, nondistended Extremity Exam: Present: normal inspection Neurological Exam: Present: alert, oriented Progress - Results and Orders Patient's Lab Results:: I have reviewed the patient's lab results. Results and Orders: Laboratory Tests 01/30/19 01/30/19 22:30 22:30 WBC 9.0 Hgb 16.5 Hct 46.3 MCV 89.0 Plt Count 238 Neutrophils % 78.1 H Lymphocytes % 11.6 L Plasma Sodium 138 Potassium 3.7 Carbon Dioxide 31.3 Anion Gap 12.4 BUN 12 Creatinine 0.98 Random Glucose 112 H Total Bilirubin 1.4 H - Vital Signs Patient's Vital Signs:: I have reviewed the patient's vital signs. Vital Signs: Vital Signs 01/30/19 21:54 Temperature 36.7 C Pulse Rate 73 Respiratory Rate 16 Blood Pressure 131/76 O2 Sat by Pulse Oximetry 100 - Progress/Reassessment Chief Complaint: Abdominal Pain Plan - Plan Plan: Patient to be admitted to Dr. Pitt's service she will follow-up in the morning Departure Clinical Impression: Small bowel obstruction - Departure Disposition: Short Term Hospital Inpatient Condition: Good Referrals: Arleth Hall FNP [Primary Care Provider] -
[2019-01-30] MEDS ORDERED: ONDANSETRON HCL/PF 2 MG/ML VIAL IV ONE (22:18)
[2019-01-30] MEDS ORDERED: NORMAL SALINE 1,000 ML IV ONE (22:18)
[2019-01-30] MEDS ORDERED: HYDROmorphone HCL 1 MG/ML DISP.SYRIN IV ONE (22:19)
[2019-01-30 22:34] LABS: Hematocrit 46.3 % (42.0-52.0); Hemoglobin 16.5 gm/dL (13.5-18.0); Mean Corpuscular Hemoglobin 31.7 pg (27-31); Mean Corpuscular Hgb Conc 35.6 g/dl (32-36); Mean Platelet Volume 9.5 fl (8-11.3); Neutrophil % 78.1 % (42-75.0); Platelet Count 238 K/mm3 (150-450); Red Cell Distribution Width 12.1 % (11.5-14.0)
[2019-01-30 22:47] LABS: Albumin * 4.1 gm/dl (3.4-5.0); Anion Gap 12.4 mmol/L (6.8-13.8); BUN/Creatinine Ratio 12.2 (9.0-21.6); Bilirubin, Total 1.4 mg/dL (0.0-1.1); Ca. Corrected For Albumin 8.9 mg/dL (8.4-10.2); Calcium * 9.3 mg/dL (7.9-10.9); Carbon Dioxide 31.3 mmol/L (24-32.6); Potassium 3.7 mmol/L (3.4-4.6); Total Protein 7.6 gm/dL (6.2-8.2)
[2019-01-30 22:53] LABS: Urine Bilirubin Negative (NEGATIVE); Urine Blood Negative /ul (NEGATIVE); Urine Ketone 50 mg/dL (NEGATIVE); Urine Nitrite Negative (NEGATIVE); Urine Protein Negative (NEGATIVE); Urine pH 8.5 pH (5.0-7.0)
[2019-01-30 23:08] LABS: Urine Amorphous Sediment Many - 3+ (NONE-FEW); Urine Appearance Clear (CLEAR); Urine Bacteria None Seen; Urine Color Yellow; Urine RBC TRACE /hpf (0-5); Urine WBC None Seen /hpf (0-5)
[2019-01-31] MEDS ORDERED: ONDANSETRON HCL/PF 2 MG/ML VIAL IV ONE (02:13)
[2019-01-31] MEDS ORDERED: HYDROmorphone HCL 1 MG/ML DISP.SYRIN IV ONE (02:31)
[2019-01-31] MEDS ORDERED: HYDROmorphone HCL 1 MG/ML DISP.SYRIN IV PRN (03:55)
[2019-01-31] MEDS ORDERED: ONDANSETRON HCL/PF 2 MG/ML VIAL IV PRN ×2 (03:55→03:56)
[2019-01-31] MEDS ORDERED: POTASSIUM CHLORIDE 20 MEQ in DEXTROSE 5%-0.5 NORMAL SALINE 990 ML IV SCH (04:00)
[2019-01-31] MEDS: HYDROmorphone HCL 1 MG/ML DISP.SYRIN IV PRN ×4 (05:42→20:56)
[2019-01-31] MEDS: POTASSIUM CHLORIDE/D5-0.5NS 1,000 ML IV SCH ×3 (06:47→22:16)
--- NOTE | 2019-01-31 08:13 | HP ---
Chief Complaint - Chief Complaint Date of Service: 01/31/19 Time of Service: 08:08 Chief Complaint: SBO History of Present Illness: Leighton is a pleasant 38 yo male who underwent an ex lap and DMITRI on 01/26. He did well and was released from the hosptal. He started to develop abdominal pain and bloating yesterday. It was difficult to have a bm and they were small. He tried MOM, without relief. He came into the ER and had a CT which shows a SBO and dilation of the upper bowel. An NG tube was placed and he has some relief. Overall he is feeling better since being admitted. Medical History (Last Reviewed 01/31/19 @ 05:03 by Ruthann Xie RN) Arthritis of left acromioclavicular joint Onset Date: Unknown Labral tear of shoulder Onset Date: ~10/2016 left Surgical History: Surgical History (Last Reviewed 01/31/19 @ 05:03 by Ruthann Xie RN) History of exploratory laparotomy Onset Date: 01/26/19 Tre-w/lysis of adhesions History of arthroscopic surgery of shoulder Onset Date: 12/06/16 Dr Griffin-left w/biceps tenodesis, posterior labral repair, open distal clavicle resection. tibia surgery Onset Date: Unknown Family History: Family History (Last Reviewed 01/31/19 @ 05:03 by Ruthann Xie RN) Father Diabetes Hypertension Grandfather CVA (cerebral vascular accident) maternal and paternal Social History: (Last Reviewed 01/31/19 @ 05:03 by Ruthann Xie RN) Social History: adopted: No foster care: No mcc: No Marital status: Single lives independently: No household members: children caregiver/support person: No current occupational status: employed current occupation: [employer] Highest education level completed: Bachelor's degree Service: No Tobacco: Smoking Status: Never smoker Alcohol: alcohol intake: current Substance Use: substance use type: does not use Dietary Habits: caffeine: Yes Review Of Systems (GEN) - Review of Systems Generalized/Overall Review: Present: Malaise EENTM: Present: No Symptoms Reported Respiratory: Present: No Symptoms Reported Cardiac: Present: No Symptoms Reported Abdominal: Present: Abdominal Pain, Constipation Genitourinary: Present: No Symptoms Reported Musculoskeletal: Present: No Symptoms Reported Neurological: Present: No Symptoms Reported Skin: Present: No Symptoms Reported Endocrine: Present: No Symptoms Reported Immunizations: IMMUNIZATION HX Immunizations Up to Date Yes History of Influenza Vaccine Yes Hx Pneumococcal Vaccination No Allergies/Adverse Reactions: Allergies Allergy/AdvReac Type Severity Reaction Status Date / Time No Known Allergies Allergy Verified 01/26/19 15:53 Home Medications: HOME MEDICATIONS Ibuprofen [Motrin] 200 - 800 mg PO BID PRN 11/27/16 [Last Taken Unknown] oxyCODONE HCL/ACETAMINOPHEN [Percocet 5 MG/325 MG] 2 tab PO Q4H PRN #30 tab 01/28/19 [Last Taken Unknown] Exam - Exam Vital Signs: Vital Signs - Last Taken Temp 37.0 C 01/31/19 03:43 Pulse 60 01/31/19 03:43 Resp 18 01/31/19 03:43 BP 138/81 01/31/19 03:43 Pulse Ox 97 01/31/19 03:43 Constitutional: Present: Alert, Oriented x3, Cooperative ENT Exam: Present: normal ENT inspection, hearing grossly normal Neck: Present: non-tender Back Exam: Present: normal inspection Breasts: Present: Exam deferred Respiratory: Present: chest non-tender, lungs clear Cardiovascular/Chest: Present: regular rate, rhythm Abdomen: Present: Normal bowel sounds, soft, nondistended, no rebound tenderness, tender. Absent: guarding, rigidity /Rectal: Present: Exam deferred Extremity: Present: normal range of motion Skin Exam: Present: normal color Neurologic: Present: electrochemist II-XII nml as tested Appearance: Present: appropriate appearance, appropriate insight Eye contact: Present: cooperative, good eye contact, normal speech Thoughts: Present: normal thought pattern Diagnostic Studies: Abnormal Lab Results 01/30/19 01/30/19 01/30/19 Range/Units 22:30 22:30 22:45 MCH 31.7 H (27-31) pg Neutrophils % 78.1 H (42-75.0) % Lymphocytes % 11.6 L (20-51) % Neutrophils # 7.0 H (1.3-6.0) K/mm3 Lymphocytes # 1.05 L (1.5-3.5) k/mm3 Random Glucose 112 H (70-110) mg/dL Total Bilirubin 1.4 H (0.0-1.1) mg/dL Urine Urobilinogen 2.0 H (NORMAL) EU/dl Amorphous Sediment Many - 3+ H (NONE-FEW) Laboratory Results WBC 9.0 K/mm3 (4.0-10.5) 01/30/19 22:30 RBC 5.20 M/mm3 (4.7-6.0) 01/30/19 22:30 Hgb 16.5 gm/dL (13.5-18.0) 01/30/19 22:30 Hct 46.3 % (42.0-52.0) 01/30/19 22:30 MCV 89.0 fl (78-100) 01/30/19 22:30 MCH 31.7 pg (27-31) H 01/30/19: MCHC 35.6 g/dl (32-36) 01/30/19 22: RDW 12.1 % (11.5-14.0) 01/30/19 22:30 Plt Count 238 K/mm3 (150-450) 01/30/19 22: MPV 9.5 fl (8-11.3) 01/30/19 22:30 Immature Gran % (Auto) 0.10 % (0.001-0.429) 01/30/19 22: Immature Gran # (Auto) 0.01 K/mm3 (0.000-0.0310) 01/30/19 22:30 Neutrophils % 78.1 % (42-75.0) H 01/30/19 22:30 Lymphocytes % 11.6 % (20-51) L 01/30/19 22:30 Monocytes % 8.6 % (0.0-9) 01/30/19: Eosinophils % 1.4 % (0.0-3.0) 01/30/19 22: Basophils % 0.2 % (0.0-1.0) 01/30/19: Nucleated RBC % 0.0 k/mm3 (0-1) 01/30/19: Neutrophils # 7.0 K/mm3 (1.3-6.0) H 01/30/19 22:30 Lymphocytes # 1.05 k/mm3 (1.5-3.5) L 01/30/19 22: Monocytes # 0.8 k/mm3 (0.0-1.0) 01/30/19 22:30 Eosinophils # 0.1 k/mm3 (0.0-0.7) 01/30/19 22:30 Absolute Basophils 0.0 k/mm3 (0.0-0.1) 01/30/19 22:30 Sodium 138 mmol/L (132-142) 01/30/19 22:30 Plasma Sodium 138 mmol/L (130-142) 01/30/19 22:30 Potassium 3.7 mmol/L (3.4-4.6) 01/30/19 22:30 Chloride 98 mmol/L (97-106) 01/30/19 22:30 Carbon Dioxide 31.3 mmol/L (24-32.6) 01/30/19 22:30 Anion Gap 12.4 mmol/L (6.8-13.8) 01/30/19 22:30 BUN 12 mg/dL (6-23) 01/30/19 22:30 Creatinine 0.98 mg/dL (0.4-1.4) 01/30/19 22:30 Est GFR (Non-Af Amer) 91 mL/min (60-130) 01/30/19 22:30 BUN/Creatinine Ratio 12.2 (9.0-21.6) 01/30/19 22:30 Random Glucose 112 mg/dL (70-110) H 01/30/19 22:30 Calcium 9.3 mg/dL (7.9-10.9) 01/30/19 22:30 Calcium Adj for Albumin 8.9 mg/dL (8.4-10.2) 01/30/19 22:30 Total Bilirubin 1.4 mg/dL (0.0-1.1) H 01/30/19 22:30 AST 20 U/L (0-48) 01/30/19 22:30 ALT 25 U/L (19-67) 01/30/19 22:30 Alkaline Phosphatase 66 U/L (50-170) 01/30/19 22:30 Total Protein 7.6 gm/dL (6.2-8.2) 01/30/19 22:30 Albumin 4.1 gm/dl (3.4-5.0) 01/30/19 22:30 Urine Color Yellow 01/30/19 22:45 Urine Appearance Clear (CLEAR) 01/30/19 22:45 Urine pH 8.5 pH (5.0-7.0) 01/30/19 22:45 Ur Specific [place] 1.010 SP.GR. (1.005-1.030) 01/30/19 22:45 Urine Protein Negative mg/dL (NEGATIVE) 01/30/19 22:45 Urine Glucose (UA) Negative mg/dL (NEGATIVE) 01/30/19 22:45 Urine Ketones 50 mg/dL (NEGATIVE) 01/30/19 22:45 Urine Blood Negative /ul (NEGATIVE) 01/30/19 22:45 Urine Nitrate Negative (NEGATIVE) 01/30/19 22:45 Urine Bilirubin Negative mg/dl (NEGATIVE) 01/30/19 22:45 Urine Urobilinogen 2.0 EU/dl (NORMAL) H 01/30/19 22:45 Ur Leukocyte Esterase Negative /ul (NEGATIVE) 01/30/19 22:45 Urine RBC Trace /hpf (0-5) 01/30/19 22:45 Urine WBC None seen /hpf (0-5) 01/30/19 22:45 Ur Epithelial Cells Trace /hpf (0-5) 01/30/19 22:45 Amorphous Sediment Many - 3+ (NONE-FEW) H 01/30/19 22:45 Urine Bacteria None seen (NONE) 01/30/19 22:45 Urine Culture Comments No culture indicated 01/30/19 22:45 Assessment/Plan - Narrative Narrative: We will proceed with conservative care. Leave NG tube and do ice chips and chloraseptic spray. IVF. Continue with close observation. - Assessment/Plan (1) Small bowel obstruction Problem: Acute
[2019-01-31] MEDS: PHENOL 180 SPRAY BTL MM PRN ×2 (11:48→18:49)
[2019-01-31] MEDS: ENOXAPARIN SODIUM 40 MG/0.4 ML SYRG SC SCH (11:54)
[2019-02-01] MEDS: PHENOL 180 SPRAY BTL MM PRN ×4 (02:24→13:55)
[2019-02-01] MEDS: HYDROmorphone HCL 1 MG/ML DISP.SYRIN IV PRN (02:27)
[2019-02-01] MEDS: POTASSIUM CHLORIDE/D5-0.5NS 1,000 ML IV SCH ×3 (06:30→21:52)
[2019-02-01] MEDS: ENOXAPARIN SODIUM 40 MG/0.4 ML SYRG SC SCH (08:16)
[2019-02-01] MEDS ORDERED: ACETAMINOPHEN 1,000 MG/100 ML BTL IV PRN (10:14)
--- NOTE | 2019-02-01 10:17 | PN ---
Dictated Progress Note - Date and Time Seen: Date: 02/01/19 Time: 10:16 - Progress Note Narrative: feeling better, no abd pain, no n/v, passing flatus, no bm yet Vital Signs - Last Taken Temp 36.9 C 02/01/19 07:55 Pulse 68 02/01/19 07:55 Resp 16 02/01/19 07:55 BP 130/79 02/01/19 07:55 Pulse Ox 98 02/01/19 07:55 NAD non labored respiration abd soft non distended, dressing clean Imp SBO resolving Plan clamp NG add non narcotic pain meds clears
[2019-02-01] MEDS: DOCUSATE SODIUM 100 MG CAPSULE PO SCH ×2 (11:40→20:51)
[2019-02-01] MEDS: KETOROLAC TROMETHAMINE 15 MG/ML VIAL IV PRN ×2 (14:39→20:54)
[2019-02-02] MEDS: POTASSIUM CHLORIDE/D5-0.5NS 1,000 ML IV SCH (05:57)
[2019-02-02] MEDS: DOCUSATE SODIUM 100 MG CAPSULE PO SCH (08:02)
[2019-02-02] MEDS: ENOXAPARIN SODIUM 40 MG/0.4 ML SYRG SC SCH (08:02)
[2019-02-02] MEDS: KETOROLAC TROMETHAMINE 15 MG/ML VIAL IV PRN (08:07)
--- NOTE | 2019-02-02 08:07 | PN ---
Dictated Progress Note - Date and Time Seen: Date: 02/02/19 Time: 08:06 - Progress Note Narrative: Vital Signs - Last Taken Temp 36.7 C 02/02/19 06:47 Pulse 62 02/02/19 06:47 Resp 12 02/02/19 06:47 BP 136/77 02/02/19 06:47 Pulse Ox 99 02/02/19 06:47 Vital signs have been normal. No further nausea or vomiting. Passing gas. No bowel movement. Incision clean. Ambulating. Pain controlled. We will advance to regular diet, saline lock IV, encourage ambulation, potentially home later today
--- NOTE | 2019-02-02 13:00 | DS ---
Date of Discharge:: 02/02/19 Description of Stay: He was admitted and placed n.p.o. status with an NG tube and IV fluids. He had return of bowel function, the nasogastric tube was discontinued and he was begun on clear liquids which he tolerated. He tolerated a regular diet and had a bowel movement. His incision appeared to be healing well and the omar were removed. He will be discharged home on a regular diet. He is to limit lifting. He is to keep the wound dry and covered for at least another 48 hours. He will use kscn-esn-colihup Advil or Tylenol for discomfort. He has phone numbers to call for questions or concerns. He will be seen back in the office in a week. Procedures Performed: none Results and Findings: Lab Pending Results 01/30/19 22:30: WBC 9.0, RBC 5.20, Hgb 16.5, Hct 46.3, MCV 89.0, MCH 31.7 H, MCHC 35.6, RDW 12.1, Plt Count 238, MPV 9.5, Immature Gran % (Auto) 0.10, Immature Gran # (Auto) 0.01, Neutrophils % 78.1 H, Lymphocytes % 11.6 L, Monocytes % 8.6, Eosinophils % 1.4, Basophils % 0.2, Nucleated RBC % 0.0, Neutr ophils # 7.0 H, Lymphocytes # 1.05 L, Monocytes # 0.8, Eosinophils # 0.1, Absolute Basophils 0.0 01/30/19 22:30: Sodium 138, Plasma Sodium 138, Potassium 3.7, Chloride 98, Car bon Dioxide 31.3, Anion Gap 12.4, BUN 12, Creatinine 0.98, Est GFR (Non-Af Amer) 91, BUN/Creatinine Ratio 12.2, Random Glucose 112 H, Calcium 9.3, Calcium Adj for Albumin 8.9, Total Bilirubin 1.4 H, AST 20, ALT 25, Alkaline Phosphatase 66, Total Protein 7.6, Albumin 4.1 01/30/19 22:45: Urine Color Yellow, Urine Appearance Clear, Urine pH 8.5, Ur Specific [place] 1.010, Urine Protein Negative, Urine Glucose (UA) Negative, Urine Ketones 50, Urine Blood Negative, Urine Nitrate Negative, Urine Bilirubin Negative, Urine Urobilinogen 2.0 H, Ur Leukocyte Esterase Negative, Urine RBC Trace, Urine WBC None seen, Ur Epithelial Cells Trace, Amorphous Sediment Many - 3+ H, Urine Bacteria None seen, Urine Culture Comments No culture indicated Discharge Location: Home Disposition: Home self-care Condition: Good Discharge Activity: Activity as tolerated, No Lifting Discharge Diet: General/regular food Referrals: Arleth Hall FNP [Primary Care Provider] - Problem Oriented Discharge Instructions to Patient/Family: Exploratory Laparotomy, Adult Additional Patient Instructions (free text): Make office appointment 1 week [phone] Complete Home Medications List: Complete Home Medication List: RX: Ibuprofen [Motrin] 200 - 800 mg PO BID PRN 11/27/16
[2019-02-02 13:39] VITALS: BP 121/83
== END 2019-02-02 14:04 | disposition home or self-care (01) | DRG 390 ==
LOC: ER 21:37 → MS 01-31 02:12
PROVIDERS: ADMIT Surgery; ATTEND Surgery
DX: K56.609 Unspecified intestinal obstruction, unspecified as to partial versus complete obstruction
CPT/HCPCS: 36415; 71010; 71045; 74177; 80053; 81001; 85025; 96361; 96374; 96375; 99285; J0131; J2405; Q9967